=== PATIENT | female | born 1950 | race Caucasian/White ===

== ENCOUNTER 2016-11-02 09:08 | Inpatient (IN) | payer MEDICARE, OTHER ==
[2016-11-02] VITALS (20 sets, daily range): BP systolic 77–203; BP diastolic 35–104; PULSE 56–83; RESP 16–18; TEMP 97.6–97.8; O2SAT 96–99
[~2016-11-02] VITALS: Ht 157.5 cm; Wt 91.6 kg
[~2016-11-02 09:08] MED LIST: ATEN25TA PO; ZITHTAB PO
--- NOTE | 2016-11-02 09:29 | PD ---
HPI Chief Complaint: Hypertension Time Seen by Provider: 09:19 Travel History International Travel<30 days: No Contact w/Intl Traveler<30days: No Traveled to known affect area: No History of Present Illness HPI This is a 66-year-old female who has a history of hypertension who presents to the emergency department having woken up this morning feeling like her heart was racing, feeling like she couldn't get settled and she couldn't make her heart slowed down. Her symptoms were constant, lasted for an hour and have improved since she's been in the emergency department. She says she feels a little lightheaded now. She denies any chest pain or shortness of breath. At the time that the symptoms were going on she took her blood pressure and it was high in the 190s. She called her primary care physician who told her to come to the emergency department. She takes atenolol 50 mg daily for her blood pressure. She last took it last evening. PFSH Past Medical History Cardiovascular Problems: Yes (htn) COPD: Yes Glaucoma: Yes Hypertension: Yes Respiratory: Yes (asthma, copd) ?: Not Tubal Ligation: Yes Past Surgical History Abdominal Surgery: Yes (INGUINAL HERNIA CHILD) Cholecystectomy: Yes Tonsillectomy: Yes Other Surgery: Yes (CYST ON SPINE REMOVED, BLADDER SURGERY) Social History Alcohol Use: Yes Tobacco Use: No Substance Use: No Allergies-Medications (Allergen,Severity, Reaction): Coded Allergies: Macrolides (Unverified Allergy, Severe, HIVES, 11/02/16) Penicillin (Unverified Allergy, Severe, SWOLLEN GLANDS, 11/02/16) Quinolones (Unverified Allergy, Severe, HIVES, 11/02/16) Sulfa (Unverified Allergy, Severe, HIVES, 11/02/16) Reported Meds & Prescriptions Reported Meds & Active Scripts Active Reported Atenolol 25 Mg Tab 50 Mg PO DAILY Review of Systems Except as stated in HPI: all other systems reviewed are Neg Physical Exam Narrative GENERAL:Well appearing, no acute distress SKIN: Warm and dry. HEAD: Atraumatic. Normocephalic. EYES: Pupils equal and round. No injection or drainage. ENT: Moist mucous membranes NECK: Trachea midline. CARDIOVASCULAR: Regular rate and rhythm. No murmur appreciated. RESPIRATORY: Clear to auscultation. Breath sounds equal bilaterally. GASTROINTESTINAL: Abdomen soft, non-tender, nondistended. MUSCULOSKELETAL: No obvious deformities. NEUROLOGICAL: Awake and alert. No obvious cranial nerve deficits. Moving all extremities. PSYCHIATRIC: Appropriate mood and affect; insight and judgment normal. Data Data Last Documented VS Vital Signs Date Time Temp Pulse Resp B/P Pulse Ox O2 Delivery O2 Flow Rate FiO2 11/02/16 13:48 60 18 167/72 98 Room Air 11/02/16 09:13 97.7 Orders Complete Blood Count With Diff (11/02/16 09:26) Basic Metabolic Panel (Bmp) (11/02/16 09:26) Troponin I (11/02/16 09:26) Electrocardiogram (11/02/16 ) ^ Insert Iv (11/02/16 09:26) Enalaprilat Inj (Vasotec Inj) (11/02/16 09:30) Magnesium (Mg) (11/02/16 09:26) Ketorolac Inj (Toradol Inj) (11/02/16 10:30) Sodium Chlor 0.9% 1000 Ml Inj (Ns 1000 M (11/02/16 10:45) Troponin I (11/02/16 12:33) Aspirin Chew (Aspirin Chew) (11/02/16 13:45) Enoxaparin Inj (Lovenox Inj) (11/02/16 14:00) Electrocardiogram (11/02/16 ) Prothrombin Time / Inr (Pt) (11/02/16 13:48) Act Partial Throm Time (Ptt) (11/02/16 13:48) Admit Order (Ed Use Only) (11/02/16 13:53) Nitroglycerin-Dextrose Inj (Nitroglyceri (11/02/16 14:00) Labs Laboratory Tests Test 11/02/16 11/02/16 09:50 12:55 White Blood Count 7.8 TH/MM3 Red Blood Count 5.61 MIL/MM3 Hemoglobin 16.5 GM/DL Hematocrit 52.2 % Mean Corpuscular Volume 93.0 FL Mean Corpuscular Hemoglobin 29.4 PG Mean Corpuscular Hemoglobin 31.5 % Concent Red Cell Distribution Width 13.6 % Platelet Count 243 TH/MM3 Mean Platelet Volume 8.7 FL Neutrophils (%) (Auto) 60.0 % Lymphocytes (%) (Auto) 25.5 % Monocytes (%) (Auto) 7.5 % Eosinophils (%) (Auto) 5.2 % Basophils (%) (Auto) 1.8 % Neutrophils # (Auto) 4.7 TH/MM3 Lymphocytes # (Auto) 2.0 TH/MM3 Monocytes # (Auto) 0.6 TH/MM3 Eosinophils # (Auto) 0.4 TH/MM3 Basophils # (Auto) 0.1 TH/MM3 CBC Comment DIFF FINAL Differential Comment Sodium Level 145 MEQ/L Potassium Level 5.2 MEQ/L Chloride Level 111 MEQ/L Carbon Dioxide Level 27.9 MEQ/L Anion Gap 6 MEQ/L Blood Urea Nitrogen 15 MG/DL Creatinine 0.74 MG/DL Estimat Glomerular Filtration 78 ML/MIN Rate Random Glucose 96 MG/DL Calcium Level 8.4 MG/DL Magnesium Level 2.2 MG/DL Troponin I 0.03 NG/ML 0.16 NG/ML [facility] Medical Decision Making Medical Screen Exam Complete: Yes Emergency Medical Condition: Yes Interpretation(s) Afebrile, no tachycardia, hypertensive EKG: Normal sinus rhythm with no ST changes Hemoconcentration Potassium is hemolyzed at 5.2 Troponin is 0.03 increased to 0.16 on 3 hour repeat Differential Diagnosis Hypertensive urgency, hypertensive emergency, nSTEMI, arrhythmia, electrolyte abnormality Narrative Course This is a 66-year-old female who presents to the emergency department with generalized weakness, palpitations and some neck discomfort. She was placed on a monitor and an IV was established. She was found to be markedly hypertensive with a map of 129. She was given a dose of Vasotec. Repeat blood pressure was improved with a map in the 90s. She denies any chest pain. Labs are obtained which demonstrated normal troponin. On reassessment the patient started to report some neck discomfort and global "heaviness". She was observed for a repeat troponin which at 3 hours was elevated at 0.16 from her prior. I spoke to Dr. mccarty production hardener for cardiology who agreed with transferring the patient to the CICU for close blood pressure management and serial cardiac enzymes. He did recommend anticoagulation. Physician Communication Physician Communication Discussed with Dr. mccarty and Dr. Josue Diagnosis Primary Impression: Hypertensive emergency Admitting Information Admitting Physician Requests: Admit Cindy Brock MD Nov 02, 2016 09:28
[2016-11-02] MEDS ORDERED: ENALAPRILAT 1.25 MG/ML VIAL IV PUSH ONE (09:30)
[2016-11-02 10:03] LABS: AUTOMATED NEUTROPHIL # 4.7 TH/MM3 (1.8-7.7); BASOPHIL # 0.1 TH/MM3 (0-0.2); BASOPHIL % 1.8 % (0.0-2.0); EOSINOPHIL # 0.4 TH/MM3 (0-0.4); EOSINOPHIL % 5.2 % (0.0-4.0); HEMATOCRIT 52.2 % (35.0-46.0); LYMPH % 25.5 % (9.0-44.0); MEAN CORPUSCULAR HEMOGLOBIN 29.4 PG (27.0-34.0); MEAN CORPUSCULAR HGB CONC 31.5 % (32.0-36.0); MONO % 7.5 % (0.0-8.0); PLATELET COUNT 243 TH/MM3 (150-450); RED BLOOD COUNT 5.61 MIL/MM3 (4.00-5.30); RED CELL DISTRIBUTION WIDTH 13.6 % (11.6-17.2); WHITE BLOOD COUNT 7.8 TH/MM3 (4.0-11.0)
[2016-11-02 10:04] LABS: HEMO FLAGS DIFF FINAL
[2016-11-02 10:12] LABS: POTASSIUM 5.2 MEQ/L (3.5-5.1)
[2016-11-02 10:14] LABS: BICARBONATE 27.9 MEQ/L (21.0-32.0); MAGNESIUM 2.2 MG/DL (1.5-2.5)
[2016-11-02] MEDS ORDERED: KETOROLAC TROMETHAMINE 30 MG/ML (IVP) VIAL IV PUSH ONE (10:30)
[2016-11-02] MEDS ORDERED: SODIUM CHLOR 0.9% 1000 ML INJ 1,000 ML IV ONE (10:45)
--- NOTE | 2016-11-02 13:44 | EKG ---
Date Performed: 11/02/2016 Time Performed: 09:34:24 PTAGE: 66 years EKG: Sinus rhythm Normal ECG PREVIOUS TRACING : 03/02/2015 20.58 DOCTOR: Jordan Noyola Interpretating Date/Time 11/02/2016 13:42:49
[2016-11-02] MEDS ORDERED: ASPIRIN 81 MG CHEW TAB CHEW ONE (13:45)
[2016-11-02] MEDS ORDERED: ENOXAPARIN SODIUM 100 MG/ML SYRINGE SQ ONE (14:00)
[2016-11-02] MEDS ORDERED: LABETALOL HCL 100 MG/20 ML VIAL IV PRN (14:00)
[2016-11-02] MEDS ORDERED: NITROGLYCERIN-DEXTROSE INJ 250 ML IV ONE (14:00)
[2016-11-02] MEDS ORDERED: hydrALAZINE HCL 20 MG/ML VIAL IV PRN (14:00)
[2016-11-02 14:39] LABS: APTT (PATIENT) 26.7 SEC (24.3-30.1); INTERNATIONAL NORMALIZED RATIO 0.9 RATIO; PROTHROMBIN TIME - PATIENT 10.4 SEC (9.8-11.6)
[2016-11-02] MEDS: SODIUM CHLOR 0.9% 1000 ML INJ 1,000 ML IV SCH (14:42)
[2016-11-02 16:35] LABS: BLOOD, URINE NEG (NEG); GLUCOSE,URINE NEG (NEG); KETONE, URINE 15 mg/dL (NEG); NITRITE,URINE NEG (NEG); PH, URINE 6.5 (5.0-8.5)
[2016-11-02 16:37] LABS: URINE COLOR YELLOW (YELLW/STRAW)
[2016-11-02 16:38] LABS: SQUAMOUS EPITHELIAL CELL URINE 0-5 /hpf (0-5); WBC, URINE 0-2 /hpf (0-5)
--- NOTE | 2016-11-02 17:34 | HHI.HP ---
[facility] Service [place] [facility] Primary Care Physician No Primary Care Physician Admission Diagnosis hypertensive emergency Diagnoses: Chief Complaint: My blood pressure is high Travel History International Travel<30 Days: No Contact w/Intl Traveler <30 Da: No Traveled to Known Affected Are: No History of Present Illness 66 years old female with history of hypertension presented to [place] ED after she found out her blood pressure was high and she felt her heart racing, patient stated her symptoms was constant and lasted for an hour, improved now after she was placed on nitroglycerin, she stated she had a very mild headache now, no nausea or vomiting, no chest pain, no blurry vision. No abdominal pain diarrhea constipation she denied orthopnea PND. Patient was found to have blood pressure in the 180/104 she only takes atenolol 50 mg daily. In ED troponin jumped between first and second set, cardiology Dr. Go was consulted , he recommended full anticoagulation with Lovenox and to transfer patient to the main hospital for further workup and possible Heart catheter Review of Systems All 10 systems reviewed and was positive for what is mentioned in history of present illness otherwise negative Past Family Social History Past Medical History Hypertension Glaucoma Past Surgical History Abdominal Surgery (INGUINAL HERNIA CHILD) Cholecystectomy Tonsillectomy (CYST ON SPINE REMOVED, BLADDER SURGERY) Allergies: Coded Allergies: Macrolides (Unverified Allergy, Severe, HIVES, 11/02/16) Penicillin (Unverified Allergy, Severe, SWOLLEN GLANDS, 11/02/16) Quinolones (Unverified Allergy, Severe, HIVES, 11/02/16) Sulfa (Unverified Allergy, Severe, HIVES, 11/02/16) Family History Mother had heart surgery in the age of 80 Social History Occasional alcohol no tobacco or illicit drug abuse Physical Exam Vital Signs Vital Signs Date Time Temp Pulse Resp B/P Pulse Ox O2 Delivery O2 Flow Rate FiO2 11/02/16 16:28 186/88 178/72 11/02/16 16:24 68 18 203/95 98 Room Air 11/02/16 13:48 60 18 167/72 98 Room Air 11/02/16 11:05 58 18 141/65 98 Room Air 11/02/16 10:08 64 18 151/68 96 Room Air 11/02/16 09:28 74 11/02/16 09:13 97.7 77 16 151/101 96 180/104 Physical Exam GENERAL: This is a well-nourished, well-developed patient, in no apparent distress. SKIN: No rashes, warm and dry HEAD: Atraumatic. Normocephalic. EYES: Pupils equal round and reactive. Extraocular motions intact. No scleral icterus. ENT: Nose without bleeding, or drainage, Airway patent. NECK: Trachea midline. Supple CARDIOVASCULAR: Regular rate and rhythm without murmurs, gallops, or rubs. RESPIRATORY: Fair air entry bilaterally. No wheezes, rales, or rhonchi. GASTROINTESTINAL: Abdomen soft, non-tender, nondistended. Positive bowel sounds MUSCULOSKELETAL: Extremities without clubbing, cyanosis, or edema. Pedal pulses appreciated NEUROLOGICAL: Awake and alert. Moves all extremity. Normal speech.no focal neurological deficit Laboratory Laboratory Tests Test 11/02/16 11/02/16 11/02/16 11/02/16 09:50 12:55 14:15 16:12 White Blood Count 7.8 Red Blood Count 5.61 Hemoglobin 16.5 Hematocrit 52.2 Mean Corpuscular Volume 93.0 Mean Corpuscular Hemoglobin 29.4 Mean Corpuscular Hemoglobin 31.5 Concent Red Cell Distribution Width 13.6 Platelet Count 243 Mean Platelet Volume 8.7 Neutrophils (%) (Auto) 60.0 Lymphocytes (%) (Auto) 25.5 Monocytes (%) (Auto) 7.5 Eosinophils (%) (Auto) 5.2 Basophils (%) (Auto) 1.8 Neutrophils # (Auto) 4.7 Lymphocytes # (Auto) 2.0 Monocytes # (Auto) 0.6 Eosinophils # (Auto) 0.4 Basophils # (Auto) 0.1 CBC Comment DIFF FINAL Differential Comment Sodium Level 145 Potassium Level 5.2 Chloride Level 111 Carbon Dioxide Level 27.9 Anion Gap 6 Blood Urea Nitrogen 15 Creatinine 0.74 Estimat Glomerular Filtration 78 Rate Random Glucose 96 Calcium Level 8.4 Magnesium Level 2.2 Troponin I 0.03 0.16 Prothrombin Time 10.4 Prothromb Time International 0.9 Ratio Activated Partial 26.7 Thromboplast Time Urine Color YELLOW Urine Turbidity CLEAR Urine pH 6.5 Urine Specific [place] 1.020 Urine Protein NEG Urine Glucose (UA) NEG Urine Ketones 15 Urine Occult Blood NEG Urine Nitrite NEG Urine Bilirubin NEG Urine Leukocyte Esterase NEG Urine WBC 0-2 Urine Squamous Epithelial 0-5 Cells Result Diagram: 11/02/16 0950 11/02/16 0950 Assessment and Plan Assessment and Plan 66 years old female with history of hypertension admitted with Hypertensive urgency Increased troponin could be related to hypertensive urgency versus acute coronary syndrome History of glaucoma DVT prophylaxis Plan: Admit to inpatient under telemetry Continue cycling cardiac enzyme Patient was given aspirin Started nitroglycerin drip Consulted cardiology recommended transfer to [facility] for further workup Last blood pressure checked manually by the nurse was 178/87 Heparin for DVT prophylax Discussed Condition With Patient in ED physician Physician Certification 2 Midnight Certification Type: Admission for Inpatient Services Order for Inpatient Services The services are ordered in accordance with Medicare regulations or non- Medicare payer requirements, as applicable. In the case of services not specified as inpatient-only, they are appropriately provided as inpatient services in accordance with the 2-midnight benchmark. Estimated LOS (days): 2 days is the estimated time the patient will need to remain in the hospital, assuming treatment plan goals are met and no additional complications. Post-Hospital Plan: Not yet determined Titus Josue MD Nov 02, 2016 17:34
[2016-11-02] MEDS ORDERED: hydrALAZINE HCL 20 MG/ML VIAL IV PUSH PRN (18:15)
[2016-11-02] MEDS: LISINOPRIL 20 MG TAB PO SCH (18:21)
[2016-11-02] MEDS: cloNIDine HCL 0.1 MG TAB PO PRN (18:21)
[2016-11-02] MEDS ORDERED: ACETAMINOPHEN 325 MG TAB PO PRN (19:00)
[2016-11-02 20:51] LABS: HDL CHOLESTEROL 53.8 MG/DL (40.0-60.0); URIC ACID 5.6 MG/DL (2.6-6.0)
[2016-11-02] MEDS ORDERED: SODIUM CHLORID 0.9% 500 ML INJ 500 ML IV ONE (23:15)
[2016-11-03] VITALS (23 sets, daily range): BP systolic 98–171; BP diastolic 49–77; PULSE 56–79; RESP 16–20; TEMP 97.7–98.4; O2SAT 97–99
[2016-11-03 00:13] LABS: MICRO ALBUMIN RANDOM URINE RAW 24.3 MG/L (0.0-30.0)
[2016-11-03] MEDS ORDERED: ENOXAPARIN SODIUM 100 MG/ML SYRINGE SQ SCH (02:00)
[2016-11-03 02:35] LABS: C. DIFF EPI 027 PRESUMPTIVE NEGATIVE (NEGATIVE); C. DIFF TOXIN PCR NEGATIVE (NEGATIVE)
[2016-11-03] MEDS: SODIUM CHLOR 0.9% 1000 ML INJ 1,000 ML IV SCH ×3 (03:14→20:52)
[2016-11-03] MEDS ORDERED: LIDOCAINE HCL 2% 100 MG/5 ML SYRINGE ONE (03:39)
[2016-11-03] MEDS ORDERED: ATROPINE SULFATE 1 MG/10 ML SYRINGE ONE (03:39)
[2016-11-03 07:16] LABS: AUTOMATED NEUTROPHIL # 9.4 TH/MM3 (1.8-7.7); BASOPHIL % 0.3 % (0.0-2.0); EOSINOPHIL % 0.2 % (0.0-4.0); HEMO FLAGS DIFF FINAL; LYMPH % 11.1 % (9.0-44.0); LYMPHOCYTE # 1.2 TH/MM3 (1.0-4.8); MEAN CELL VOLUME 92.1 FL (80.0-100.0); MEAN CORPUSCULAR HEMOGLOBIN 29.7 PG (27.0-34.0); MEAN CORPUSCULAR HGB CONC 32.2 % (32.0-36.0); MONO % 3.2 % (0.0-8.0); NEUT % 85.2 % (16.0-70.0); PLATELET COUNT 210 TH/MM3 (150-450); RED BLOOD COUNT 4.77 MIL/MM3 (4.00-5.30); RED CELL DISTRIBUTION WIDTH 13.8 % (11.6-17.2)
[2016-11-03 07:26] LABS: BICARBONATE 25.2 MEQ/L (21.0-32.0); POTASSIUM 3.8 MEQ/L (3.5-5.1)
--- NOTE | 2016-11-03 08:39 | MB ---
cc: GEOVANI MCKEON DATE OF CONSULTATION: 11/02/2016. REASON FOR CONSULTATION: no ST elevation myocardial infarction. HISTORY OF PRESENT ILLNESS: This is a 66-year-old female with history of significant hypertension who presented to the emergency department at [place] after she felt substernal chest pain and tachycardia this morning. The patient states that she awoke. She had sudden onset of substernal tightness she describes as a heaviness in the center of her chest. She also had a mild associated headache. She denies any recent anginal type exertional symptoms but she does have limited functional capacity. She came into the emergency department and was given nitroglycerin which relieved the pain. Initial blood pressure was elevated at 180/104 mmHg. She does take atenolol at home. Her initial troponin was negative but trended positive at 0.16. She has had some intermittent symptoms. She was started on a heparin drip and transferred to the cardiac intensive care unit. We were consulted for further recommendations. PAST MEDICAL HISTORY: 1. Hypertension. 2. Glaucoma. ALLERGIES: 1. . 2. PENICILLIN. 3. QUINOLONES. 4. SULFA. FAMILY HISTORY: Denies any family history of early coronary artery disease or sudden cardiac . SOCIAL HISTORY: Denies alcohol, tobacco or drug use. REVIEW OF SYSTEMS: Her twelve-point review of systems was performed and is negative unless otherwise noted in the history of present illness. PHYSICAL EXAMINATION: VITAL SIGNS: Temperature is 97, pulse is 60, blood pressure is 177/84 mmHg. GENERAL: Alert and oriented times three. HEAD, EYES, EARS, NOSE, THROAT: Pupils are reactive to light and accommodation. Extraocular muscles intact. NECK: No jugular venous distension. No thyromegaly or lymphadenopathy. No carotid bruits. LUNGS: Clear to auscultation bilaterally. CARDIAC: Regular rate and rhythm. There is a 1/6 systolic murmur left sternal border. ABDOMEN: Nontender, nondistended. Good bowel sounds. No hepatosplenomegaly. EXTREMITIES: Show no clubbing, cyanosis or edema. Good peripheral pulses. NEUROLOGICAL EXAMINATION: Cranial nerves are intact. Motor and sensory are intact. LABS: Sodium is 145, potassium 5.2, BUN 15, creatinine 0.74. Troponin is 0.16. EKGS: Electrocardiogram shows sinus rhythm, nonspecific T wave abnormality. ASSESSMENT: 1. [id number] myocardial infarction. 2. Hypertension, uncontrolled. PLAN: 1. The patient has recurrent symptoms, now ruled in by troponin. We discussed potential options and consideration of stress test versus heart catheterization. We have elected to proceed with cardiac catheterization. Risks, benefits, and alternatives were discussed with the patient and the patient understood and consented to proceed. 2. We will continue on heparin for now. 3. We are going to add hydralazine to her regimen for better blood pressure control. 4. Will also add an CHAPARRITA inhibitor once a day. She previously had taken atenolol. 5. Will hold Lovenox in the morning. MD REGINALD Norris/MARIXA /6:08 PM /8:38 AM MTDD
[2016-11-03] MEDS: ATENOLOL 25 MG TAB PO SCH (08:56)
[2016-11-03] MEDS: LISINOPRIL 20 MG TAB PO SCH (08:56)
[2016-11-03] MEDS: ASPIRIN EC 81 MG TABEC PO SCH (08:56)
--- NOTE | 2016-11-03 10:47 | PD.CARD.PN ---
Subjective Subjective Remarks admits to mild BEASLEY. denies any further chest pain. No SOB or palpitations. Objective Medications Current Medications Medications (Trade) Dose Ordered Sig/Pritesh Route Start Time Stop Time Status Last Admin (NS 1000 ml Inj) 1,000 ml @ 75 mls/hr [id number] IV 11/02/16 13:54 11/03/16 03:14 (Trandate Inj) 10 mg Q6H PRN IV 11/02/16 14:00 (Ecotrin Ec) 81 mg DAILY PO 11/03/16 09:00 11/03/16 08:56 (Tenormin) 25 mg DAILY PO 11/03/16 09:00 11/03/16 08:56 (Prinivil) 40 mg DAILY PO 11/02/16 18:15 11/03/16 08:56 (Apresoline Inj) 20 mg Q4H PRN IV PUSH 11/02/16 18:15 11/02/16 18:21 (Catapres) 0.2 mg Q6H PRN PO 11/02/16 18:15 11/02/16 18:21 (Tylenol) 650 mg Q4H PRN PO 11/02/16 19:00 11/03/16 09:04 Vital Signs / I&O Vital Signs Date Time Temp Pulse Resp B/P Pulse Ox O2 Delivery O2 Flow Rate FiO2 11/03/16 10:04 16 11/03/16 08:00 98.2 79 16 159/76 98 11/03/16 08:00 66 11/03/16 06:00 73 11/03/16 05:00 65 11/03/16 04:00 63 11/03/16 04:00 98.0 63 16 121/65 97 11/03/16 03:00 65 11/03/16 02:00 58 11/03/16 01:00 58 11/03/16 01:00 58 11/03/16 00:00 97.7 56 20 98/49 97 11/03/16 00:00 65 11/03/16 00:00 65 11/02/16 23:00 56 11/02/16 23:00 56 11/02/16 22:54 101/52 11/02/16 22:50 93/44 11/02/16 22:45 84/44 11/02/16 22:42 77/35 11/02/16 22:31 79/39 11/02/16 22:00 58 11/02/16 22:00 58 11/02/16 21:00 60 11/02/16 21:00 60 11/02/16 20:00 97.6 65 18 96/47 97 Manual Cuff/Auscultation 11/02/16 20:00 70 11/02/16 20:00 83 11/02/16 19:00 83 11/02/16 19:00 83 11/02/16 18:30 165/73 11/02/16 17:35 61 11/02/16 17:30 61 11/02/16 17:20 97.8 61 16 177/84 99 11/02/16 16:28 186/88 178/72 11/02/16 16:24 68 18 203/95 98 Room Air 11/02/16 13:48 60 18 167/72 98 Room Air 11/02/16 11:05 58 18 141/65 98 Room Air I/O 11/02/16 11/02/16 11/02/16 11/03/16 11/03/16 11/03/16 07:00 15:00 23:00 07:00 15:00 23:00 Intake Total 1000 ml 1291 ml Output Total 200 ml Balance 1000 ml 1091 ml Intake Oral 120 ml IV Total 1000 ml 1171 ml Output Urine Total 200 ml # Voids 2 # Bowel Movements 3 Physical Exam HEAD: Atraumatic. Normocephalic. EYES: Pupils equal and round. No scleral icterus. No injection or drainage. ENT: No nasal bleeding or discharge. Mucous membranes pink and moist. NECK: Trachea midline. No JVD. CARDIOVASCULAR: Regular rate and rhythm. No murmur RESPIRATORY: No accessory muscle use. Clear to auscultation. Breath sounds equal bilaterally. GASTROINTESTINAL: Abdomen soft, non-tender, nondistended. MUSCULOSKELETAL: Extremities without clubbing, cyanosis, or edema. No obvious deformities. NEUROLOGICAL: Awake and alert. No obvious cranial nerve deficits. Normal speech. PSYCHIATRIC: Appropriate mood and affect; insight and judgment normal. Laboratory Laboratory Tests Test 11/02/16 11/02/16 11/02/16 11/02/16 12:55 14:15 16:12 16:16 Troponin I 0.16 NG/ML Prothrombin Time 10.4 SEC Prothromb Time International 0.9 RATIO Ratio Activated Partial 26.7 SEC Thromboplast Time Urine Color YELLOW Urine Turbidity CLEAR Urine pH 6.5 Urine Specific [place] 1.020 Urine Protein NEG mg/dL Urine Glucose (UA) NEG mg/dL Urine Ketones 15 mg/dL Urine Occult Blood NEG Urine Nitrite NEG Urine Bilirubin NEG Urine Leukocyte Esterase NEG Urine WBC 0-2 /hpf Urine Squamous Epithelial 0-5 /hpf Cells Urine Random Creatinine 98 MG/DL Urine Microalbumin/Creatinine 25 MG/G CRE Ratio Test 11/02/16 11/02/16 11/03/16 11/03/16 20:25 20:26 00:00 06:10 Creatinine 1.06 MG/DL 0.78 MG/DL Estimat Glomerular Filtration 52 ML/MIN 73 ML/MIN Rate Uric Acid 5.6 MG/DL Troponin I 0.10 NG/ML Triglycerides Level 114 MG/DL Cholesterol Level 200 MG/DL LDL Cholesterol 123 MG/DL HDL Cholesterol 53.8 MG/DL Cholesterol/HDL Ratio 3.71 RATIO Blood Type A POSITIVE Antibody Screen NEGATIVE Blood Bank Comment Stool C. difficile Toxin (PCR) NEGATIVE Stl C. difficile Toxin PRESUMPTIVE Epiderm 027 NEGATIVE White Blood Count 11.0 TH/MM3 Red Blood Count 4.77 MIL/MM3 Hemoglobin 14.2 GM/DL Hematocrit 44.0 % Mean Corpuscular Volume 92.1 FL Mean Corpuscular Hemoglobin 29.7 PG Mean Corpuscular Hemoglobin 32.2 % Concent Red Cell Distribution Width 13.8 % Platelet Count 210 TH/MM3 Mean Platelet Volume 8.7 FL Neutrophils (%) (Auto) 85.2 % Lymphocytes (%) (Auto) 11.1 % Monocytes (%) (Auto) 3.2 % Eosinophils (%) (Auto) 0.2 % Basophils (%) (Auto) 0.3 % Neutrophils # (Auto) 9.4 TH/MM3 Lymphocytes # (Auto) 1.2 TH/MM3 Monocytes # (Auto) 0.4 TH/MM3 Eosinophils # (Auto) 0.0 TH/MM3 Basophils # (Auto) 0.0 TH/MM3 CBC Comment DIFF FINAL Differential Comment Sodium Level 143 MEQ/L Potassium Level 3.8 MEQ/L Chloride Level 111 MEQ/L Carbon Dioxide Level 25.2 MEQ/L Anion Gap 7 MEQ/L Blood Urea Nitrogen 19 MG/DL Random Glucose 108 MG/DL Calcium Level 8.1 MG/DL Assessment and Plan Assessment and Plan NSTEMI - chest pain resolved since nitro given in ED yesterday. Scheduled for [facility] this morning. Candie Ramirez Nov 03, 2016 10:47
--- NOTE | 2016-11-03 11:18 | HHI.PR ---
Subjective Remarks Follow-up non-ST elevation [place] 11/03/16-patient seen and examined, currently nothing by mouth pending [facility] me complains of couple bout of diarrhea. Denies any chest pain Objective Vitals Vital Signs Date Time Temp Pulse Resp B/P Pulse Ox O2 Delivery O2 Flow Rate FiO2 11/03/16 10:04 16 11/03/16 08:00 98.2 79 16 159/76 98 11/03/16 08:00 66 11/03/16 06:00 73 11/03/16 05:00 65 11/03/16 04:00 63 11/03/16 04:00 98.0 63 16 121/65 97 11/03/16 03:00 65 11/03/16 02:00 58 11/03/16 01:00 58 11/03/16 01:00 58 11/03/16 00:00 97.7 56 20 98/49 97 11/03/16 00:00 65 11/03/16 00:00 65 11/02/16 23:00 56 11/02/16 23:00 56 11/02/16 22:54 101/52 11/02/16 22:50 93/44 11/02/16 22:45 84/44 11/02/16 22:42 77/35 11/02/16 22:31 79/39 11/02/16 22:00 58 11/02/16 22:00 58 11/02/16 21:00 60 11/02/16 21:00 60 11/02/16 20:00 97.6 65 18 96/47 97 Manual Cuff/Auscultation 11/02/16 20:00 70 11/02/16 20:00 83 11/02/16 19:00 83 11/02/16 19:00 83 11/02/16 18:30 165/73 11/02/16 17:35 61 11/02/16 17:30 61 11/02/16 17:20 97.8 61 16 177/84 99 11/02/16 16:28 186/88 178/72 11/02/16 16:24 68 18 203/95 98 Room Air 11/02/16 13:48 60 18 167/72 98 Room Air I/O 11/02/16 11/02/16 11/02/16 11/03/16 11/03/16 11/03/16 07:00 15:00 23:00 07:00 15:00 23:00 Intake Total 1000 ml 1291 ml Output Total 200 ml Balance 1000 ml 1091 ml Intake Oral 120 ml IV Total 1000 ml 1171 ml Output Urine Total 200 ml # Voids 2 # Bowel Movements 3 Result Diagram: 11/03/16 0610 11/03/16 0610 Objective Remarks GENERAL: NAD SKIN: Warm and dry. HEAD: Normocephalic. EYES: No scleral icterus. No injection or drainage. NECK: Supple, trachea midline. No JVD or lymphadenopathy. CARDIOVASCULAR: Regular rate and rhythm without murmurs, gallops, or rubs. RESPIRATORY: Breath sounds equal bilaterally. No accessory muscle use. GASTROINTESTINAL: Abdomen soft, non-tender, nondistended. MUSCULOSKELETAL: No cyanosis, or edema. BACK: Nontender without obvious deformity. No CVA tenderness. A/P Problem List: (1) Non-ST elevation [place] (NSTEMI) ICD Code: I21.4 Status: Acute (2) Hypertensive emergency ICD Code: I16.1 Status: Acute (3) Diarrhea ICD Code: R19.7 Status: Acute Assessment and Plan 66-year-old female with 1-Non-ST elevation [place]: Patient input from cardiology pending left heart catheterization scheduled for today. Continue with Nitrol /lisinopril/aspirin/ atenolol and add Lipitor. Patient was supposed to be on Heparin drip 2-Hypertensive urgency: Resolved and continue with atenolol and CHAPARRITA inhibitor 3-Diarrhea: Maybe secondary to medication side effect, C. difficile PCR negative 4-DVT prophylaxis: Edwin Freeman MD Nov 03, 2016 11:18
[2016-11-03] MEDS ORDERED: LOPERAMIDE HCL 2 MG CAP PO PRN ×2 (15:00→17:00)
[2016-11-03] MEDS ORDERED: HEPARIN-NS/PF INJ 500 ML ONE (15:20)
[2016-11-03] MEDS ORDERED: MIDAZOLAM HCL 2 MG/2 ML VIAL ONE (15:21)
[2016-11-03] MEDS ORDERED: HEPARIN SODIUM - IV 10,000 UNITS/10 ML VIAL ONE (15:21)
[2016-11-03] MEDS ORDERED: IOHEXOL 350 MG/ML 100 ML BTL (for Cath Lab) OTHER ONE (15:45)
--- NOTE | 2016-11-03 15:53 | EKG ---
Date Performed: 11/02/2016 Time Performed: 13:38:38 PTAGE: 66 years EKG: Sinus bradycardia PREVIOUS TRACING : 11/02/2016 09.34 Compared to previous tracing, the patient is now danielle ycardic. DOCTOR: Yady Del Valle Interpretating Date/Time 11/03/2016 15:51:26
[2016-11-03] MEDS ORDERED: BACITRACIN OINT 0.9 GM PKT TOP ONE (16:00)
[2016-11-03] MEDS ORDERED: MISC INFORMATION XX ONE (16:00)
--- NOTE | 2016-11-03 17:16 | EC ---
Study Study Date:11/03/2016 STUDY CONCLUSIONS SUMMARY LEFT VENTRICLE: The cavity size was normal. Wall thickness was normal. Systolic function was normal. The estimated ejection fraction was in the range of 55% to 60%. Wall motion was normal; there were no regional wall motion abnormalities. If LV function is below 40, please consider prescribing an ACEI or ARB or document rationale for non-use. PROCEDURE DATA STUDY STATUS: Elective. Procedure: Transthoracic echocardiography. Image quality was good. Scanning was performed from the parasternal, apical, and subcostal acoustic windows. Study completion: The patient tolerated the procedure well. Transthoracic echocardiography. M-mode, complete 2D, complete spectral Doppler, and color Doppler. Patient status: Inpatient. CARDIAC ANATOMY LEFT VENTRICLE: The cavity size was normal. Wall thickness was normal. Systolic function was normal. The estimated ejection fraction was in the range of 55% to 60%. Wall motion was normal; there were no regional wall motion abnormalities. AORTIC VALVE: Trileaflet; normal thickness leaflets. Doppler: Transvalvular velocity was within the normal range. There was no stenosis. No regurgitation. AORTA: Aortic root: The aortic root was normal in size. MITRAL VALVE: Structurally normal valve. Doppler: Transvalvular velocity was within the normal range. There was no evidence for stenosis. No regurgitation. Peak gradient: 3mm Hg (D). LEFT ATRIUM: The atrium was normal in size. RIGHT VENTRICLE: The cavity size was normal. Wall thickness was normal. PULMONIC VALVE: Doppler: Transvalvular velocity was within the normal range. There was no evidence for stenosis. No regurgitation. TRICUSPID VALVE: Structurally normal valve. Doppler: Transvalvular velocity was within the normal range. No regurgitation. PULMONARY ARTERY: The main pulmonary artery was normal-sized. Systolic pressure was within the normal range. RIGHT ATRIUM: The atrium was normal in size. PERICARDIUM: There was no pericardial effusion. SYSTEMIC VEINS: Inferior vena cava: The vessel was normal in size. BASIC MEASUREMENTS ADULT NORMAL Left ventricle LV internal dimension, ED, chordal level, 44.4 mm 43-52 PLAX LV internal dimension, ES, chordal level, 33.9 mm 23-38 PLAX Fractional shortening, chordal level, PLAX *24 % >29 LV posterior wall thickness, ED 7.41 mm IVS/LVPW ratio, ED 1.06 <1.3 Ventricular septum Septal thickness, ED 7.84 mm Aortic valve Leaflet separation 21 mm 15-26 Left atrium Anterior-posterior dimension 25 mm Right ventricle RV internal dimension, ED, PLAX 21.2 mm 19-38 BASIC MEASUREMENTS ADULT NORMAL Aortic valve Leaflet separation 21 mm 15-26 Aorta Root diameter, ED 30 mm 20-37 DOPPLER MEASUREMENTS ADULT NORMAL Mitral valve Peak E-wave velocity 86.9 cm/s Peak A-wave velocity 80.5 cm/s Peak gradient, D 3 mm Hg Peak E/A ratio 1.1 Tricuspid valve Regurgitant peak velocity 246 cm/s Peak RV-RA gradient, S 24 mm Hg Maximal regurgitant velocity 246 cm/s LEGEND: Mean values are shown as u=mean value. Asterisk (*) roberts values outside specified normal range. Prepared and signed by Jordan Noyola [id number]
--- NOTE | 2016-11-03 17:55 | MA ---
cc: GEOVANI MCKEON DATE: 11/03/2016. PROCEDURE PERFORMED: 1. Fluoroscopy with interpretation. 2. Left heart catheterization. 3. Left ventriculography. 4. Coronary angiography. METHOD: The risks, benefits, and alternatives were discussed with the patient. The patient understood and consented to the procedure. The patient was brought into the cardiac catheterization lab and placed on the catheterization table. Right wrist was prepped and draped in the usual sterile fashion. Right wrist was anesthetized with 2% lidocaine. Right radial artery was cannulated. A 6-Macedonian 7-cm sheath was placed without difficulty. LEFT HEART CATHETERIZATION Initial intraoperative hemodynamics measured at 149/40 mmHg. LEFT VENTRICULOGRAPHY: Left ventriculography was performed in the right anterior oblique view using a 6-Macedonian JR-5 catheter and a 12 cc contrast injection with good opacification. The left ventricular ejection fraction was visually estimated at 65% without regional wall motion abnormalities. CORONARY ANGIOGRAPHY: The left coronary circulation was selectively engaged with a 6-Macedonian catheter. Right coronary circulation was selectively engaged with a 6-Macedonian JR-5 catheter. CORONARY ANATOMY: 1. Left main coronary is angiographically normal. 2. Left anterior descending coronary is angiographically normal and extends down to the apex. 3. Left circumflex gives rise to a ramus intermedius branch and obtuse marginal branch and is left dominant all of which are angiographically normal. 4. The right coronary artery is small in caliber sized vessel and nondominant and is angiographically normal. CONCLUSIONS: 1. Angiographically normal coronary arteries. 2. Normal left ventricular systolic function. PLAN: The patient will be monitored closely for any post-procedural complications. The mildly elevated troponin is likely secondary to demand-mediated state with hypertension. Blood pressure control will be critical. She can follow up with her primary care physician on an outpatient basis. MD REGINALD Norris/MARIXA /4:00 PM /5:49 PM
[2016-11-03] MEDS: cloNIDine HCL 0.1 MG TAB PO PRN (20:51)
[2016-11-03] MEDS ORDERED: ATORVASTATIN 20 MG TAB PO SCH (21:00)
[2016-11-04] VITALS (10 sets, daily range): BP systolic 125–159; BP diastolic 68–77; PULSE 57–67; RESP 16–18; TEMP 98.1–98.6; O2SAT 97–99
[2016-11-04 06:57] LABS: ALT (GPT) 11 U/L (10-53); ANION GAP 8 MEQ/L (5-15); AST (GOT) 9 U/L (15-37); BICARBONATE 23.1 MEQ/L (21.0-32.0); BLOOD UREA NITROGEN 10 MG/DL (7-18); CHLORIDE 112 MEQ/L (98-107); GLOMERULAR FILTRATION RATE 103 ML/MIN (>89); POTASSIUM 3.5 MEQ/L (3.5-5.1); SODIUM (NA) 143 MEQ/L (136-145)
[2016-11-04 06:59] LABS: ALKALINE PHOSPHATASE 53 U/L (45-117)
[2016-11-04] MEDS: SODIUM CHLOR 0.9% 1000 ML INJ 1,000 ML IV SCH (07:46)
--- NOTE | 2016-11-04 07:46 | PD.CARD.PN ---
Subjective Subjective Remarks The patient denies chest pain, shortness of breath, palpitations or bleeding. Telemetry reveals sinus rhythm. Chart reviewed. Objective Medications Reviewed Vital Signs / I&O Vital Signs Date Time Temp Pulse Resp B/P Pulse Ox O2 Delivery O2 Flow Rate FiO2 11/04/16 07:00 59 11/04/16 06:00 66 11/04/16 05:00 61 11/04/16 04:00 57 11/04/16 04:00 98.6 57 18 125/68 97 11/04/16 03:00 64 11/04/16 02:00 61 11/04/16 01:00 59 11/04/16 00:00 98.3 67 16 131/71 97 11/04/16 00:00 61 11/03/16 23:00 62 11/03/16 22:00 64 11/03/16 21:00 64 11/03/16 20:00 63 11/03/16 20:00 98.4 65 16 162/63 99 11/03/16 18:00 60 11/03/16 17:00 66 11/03/16 16:00 98.2 66 16 171/77 99 11/03/16 16:00 63 11/03/16 15:00 58 11/03/16 14:00 62 11/03/16 13:00 56 11/03/16 12:00 59 11/03/16 12:00 98.1 60 18 147/72 98 11/03/16 11:00 60 11/03/16 10:04 16 11/03/16 10:00 60 11/03/16 09:00 76 11/03/16 08:00 98.2 79 16 159/76 98 11/03/16 08:00 66 I/O 11/03/16 11/03/16 11/03/16 11/04/16 11/04/16 11/04/16 07:00 15:00 23:00 07:00 15:00 23:00 Intake Total 1291 ml 1610 ml 1117 ml Output Total 200 ml 850 ml 550 ml Balance 1091 ml 760 ml 567 ml Intake Oral 120 ml 360 ml 480 ml IV Total 1171 ml 1250 ml 637 ml Output Urine Total 200 ml 850 ml 550 ml # Bowel Movements 3 3 0 Physical Exam GENERAL: Well-nourished, well-developed patient in no apparent distress. SKIN: Warm and dry. NECK: JVD normal - less than or equal to 5 cm H20. CARDIOVASCULAR: Regular rate and rhythm without gallops, or rubs. 1/6 early peaking systolic ejection murmur at the base. RESPIRATORY: Normal breath sounds - equal bilaterally. No accessory muscle use. No wheezes, rales or rubs. PERIPHERY: No cyanosis, or edema. Radial Cath Site dry. Laboratory Laboratory Tests Test 11/04/16 04:55 Sodium Level 143 MEQ/L Potassium Level 3.5 MEQ/L Chloride Level 112 MEQ/L Carbon Dioxide Level 23.1 MEQ/L Anion Gap 8 MEQ/L Blood Urea Nitrogen 10 MG/DL Creatinine 0.58 MG/DL Estimat Glomerular Filtration 103 ML/MIN Rate Random Glucose 85 MG/DL Calcium Level 7.9 MG/DL Total Bilirubin 1.0 MG/DL Aspartate Amino Transf 9 U/L (AST/SGOT) Alanine Aminotransferase 11 U/L (ALT/SGPT) Alkaline Phosphatase 53 U/L Total Protein 5.9 GM/DL Albumin 2.4 GM/DL Assessment and Plan Assessment and Plan Problems: Non-ST elevation NM, likely demand driven from hypertension. Hyperlipidemia Recommendations: Continue present medical regimen with follow-up with PCP. The patient has not had a chest x-ray and I will therefore order one and leave it to the primary service to follow-up on this before discharge. We will be available if needed. Chilo Allen MD Nov 04, 2016 07:46
--- NOTE | 2016-11-04 08:19 | HHI.PR ---
Subjective Remarks Follow-up non-ST elevation [place] 11/03/16-patient seen and examined, currently nothing by mouth pending [facility] complains of couple bout of diarrhea. Denies any chest pain 11/04/16-patient seen and examined. Denies any chest pain or shortness of breath. Only complains of mild abdominal cramping secondary to diarrhea episode which have resolved. She had normal nuclear stress test yesterday. Objective Vitals Vital Signs Date Time Temp Pulse Resp B/P Pulse Ox O2 Delivery O2 Flow Rate FiO2 11/04/16 07:00 59 11/04/16 06:00 66 11/04/16 05:00 61 11/04/16 04:00 57 11/04/16 04:00 98.6 57 18 125/68 97 11/04/16 03:00 64 11/04/16 02:00 61 11/04/16 01:00 59 11/04/16 00:00 98.3 67 16 131/71 97 11/04/16 00:00 61 11/03/16 23:00 62 11/03/16 22:00 64 11/03/16 21:00 64 11/03/16 20:00 63 11/03/16 20:00 98.4 65 16 162/63 99 11/03/16 18:00 60 11/03/16 17:00 66 11/03/16 16:00 98.2 66 16 171/77 99 11/03/16 16:00 63 11/03/16 15:00 58 11/03/16 14:00 62 11/03/16 13:00 56 11/03/16 12:00 59 11/03/16 12:00 98.1 60 18 147/72 98 11/03/16 11:00 60 11/03/16 10:04 16 11/03/16 10:00 60 11/03/16 09:00 76 I/O 11/03/16 11/03/16 11/03/16 11/04/16 11/04/16 11/04/16 07:00 15:00 23:00 07:00 15:00 23:00 Intake Total 1291 ml 1610 ml 1117 ml Output Total 200 ml 850 ml 550 ml Balance 1091 ml 760 ml 567 ml Intake Oral 120 ml 360 ml 480 ml IV Total 1171 ml 1250 ml 637 ml Output Urine Total 200 ml 850 ml 550 ml # Bowel Movements 3 3 0 Result Diagram: 11/03/16 0610 11/04/16 0455 Objective Remarks GENERAL: NAD SKIN: Warm and dry. HEAD: Normocephalic. EYES: No scleral icterus. No injection or drainage. NECK: Supple, trachea midline. No JVD or lymphadenopathy. CARDIOVASCULAR: Regular rate and rhythm without murmurs, gallops, or rubs. RESPIRATORY: Breath sounds equal bilaterally. No accessory muscle use. GASTROINTESTINAL: Abdomen soft, non-tender, nondistended. MUSCULOSKELETAL: No cyanosis, or edema. BACK: Nontender without obvious deformity. No CVA tenderness. Procedures none A/P Problem List: (1) Non-ST elevation [place] (NSTEMI) ICD Code: I21.4 Status: Acute (2) Hypertensive emergency ICD Code: I16.1 Status: Acute (3) Diarrhea ICD Code: R19.7 Status: Acute Assessment and Plan 66-year-old female with 1-Non-ST elevation FL: Appreciate input from cardiology and patient is status post [facility] 11/03/16 with Angiographically normal coronary arteries and Normal left ventricular systolic function. Continue with Nitrol /lisinopril/aspirin/ atenolol and add Lipitor. 2-Hypertensive urgency: Resolved and continue with atenolol and CHAPARRITA inhibitor 3-Diarrhea: C. difficile PCR negative, improving continue with conservative management. 4-DVT prophylaxis: Edwin Freeman MD Nov 04, 2016 08:19
[2016-11-04] MEDS ORDERED: ATEN25TA PO (08:25)
[2016-11-04] MEDS ORDERED: ASPI81TA11 PO (08:25)
[2016-11-04] MEDS ORDERED: LIPI20TA PO (08:25)
[2016-11-04] MEDS ORDERED: LISI-515 PO (08:25)
--- NOTE | 2016-11-04 08:27 | HHI.DS ---
Discharge Summary Admission Date Nov 02, 2016 at 13:55 Discharge Date: Nov 04, 2016 Admitting Diagnosis hypertensive emergency (1) Non-ST elevation [place] (NSTEMI) ICD Code: I21.4 (2) Hypertensive emergency ICD Code: I16.1 (3) Diarrhea ICD Code: R19.7 Procedures none Brief History - From Admission 66 years old female with history of hypertension presented to [facility] ED after she found out her blood pressure was high and she felt her heart racing, patient stated her symptoms was constant and lasted for an hour, improved now after she was placed on nitroglycerin, she stated she had a very mild headache now, no nausea or vomiting, no chest pain, no blurry vision. No abdominal pain diarrhea constipation she denied orthopnea PND. Patient was found to have blood pressure in the 180/104 she only takes atenolol 50 mg daily. In ED troponin jumped between first and second set, cardiology Dr. oG was consulted , he recommended full anticoagulation with Lovenox and to transfer patient to the main hospital for further workup and possible Heart catheter CBC/BMP: 11/03/16 0610 11/04/16 0455 Significant Findings Laboratory Tests Test 11/02/16 11/02/16 11/02/16 11/02/16 09:50 12:55 16:12 20:25 Red Blood Count 5.61 MIL/MM3 (4.00-5.30) Hemoglobin 16.5 GM/DL (11.6-15.3) Hematocrit 52.2 % (35.0-46.0) Mean Corpuscular Hemoglobin 31.5 % Concent (32.0-36.0) Eosinophils (%) (Auto) 5.2 % (0.0-4.0) Potassium Level 5.2 MEQ/L (3.5-5.1) Chloride Level 111 MEQ/L (98-107) Estimat Glomerular Filtration 78 ML/MIN (>89) 52 ML/MIN (>89) Rate Calcium Level 8.4 MG/DL (8.5-10.1) Troponin I 0.16 NG/ML 0.10 NG/ML (0.02-0.05) (0.02-0.05) Urine Ketones 15 mg/dL (NEG) Creatinine 1.06 MG/DL (0.50-1.00) LDL Cholesterol 123 MG/DL (0-99) Test 11/03/16 11/04/16 06:10 04:55 Neutrophils (%) (Auto) 85.2 % (16.0-70.0) Neutrophils # (Auto) 9.4 TH/MM3 (1.8-7.7) Chloride Level 111 MEQ/L 112 MEQ/L (98-107) (98-107) Blood Urea Nitrogen 19 MG/DL (7-18) Estimat Glomerular Filtration 73 ML/MIN (>89) Rate Random Glucose 108 MG/DL (74-106) Calcium Level 8.1 MG/DL 7.9 MG/DL (8.5-10.1) (8.5-10.1) Aspartate Amino Transf 9 U/L (15-37) (AST/SGOT) Total Protein 5.9 GM/DL (6.4-8.2) Albumin 2.4 GM/DL (3.4-5.0) PE at Discharge GENERAL: NAD SKIN: Warm and dry. HEAD: Normocephalic. EYES: No scleral icterus. No injection or drainage. NECK: Supple, trachea midline. No JVD or lymphadenopathy. CARDIOVASCULAR: Regular rate and rhythm without murmurs, gallops, or rubs. RESPIRATORY: Breath sounds equal bilaterally. No accessory muscle use. GASTROINTESTINAL: Abdomen soft, non-tender, nondistended. MUSCULOSKELETAL: No cyanosis, or edema. BACK: Nontender without obvious deformity. No CVA tenderness. Hospital Course 1-Non-ST elevation [place]: Appreciate input from cardiology and patient is status post [facility] 11/03/16 with Angiographically normal coronary arteries and Normal left ventricular systolic function. She was treated with Nitrol /lisinopril/ aspirin/atenolol and Lipitor. Lovenox Sq discontinued prior to [facility] 2-Hypertensive urgency: Resolved and she was continued on atenolol 25 mg daily and lisinopril 40 mg daily 3-Diarrhea: C. difficile PCR negative, improved continue with conservative management including IV fluid hydration 4-DVT prophylaxis: Lovenox Pt Condition on Discharge: Stable Discharge Disposition: Discharge Home Discharge Time: <= 30 minutes Discharge Instructions DIET: Follow Instructions for: Heart Healthy Diet Activities you can perform: Regular-No Restrictions Follow up Referrals: PCP Follow-up - 1 Week New Medications: Aspirin DR (Aspirin EC) 81 Mg Tabdr 81 MG PO DAILY Prevent Blood Clot #30 TAB Atenolol (Atenolol) 25 Mg Tab 25 MG PO DAILY Blood Pressure Management #30 TAB Atorvastatin (Lipitor) 20 Mg Tab 20 MG PO HS Cholesterol Management #30 TAB Lisinopril (Lisinopril) 20 Mg Tab 40 MG PO DAILY Blood Pressure Management #30 TAB Discontinued Medications: Atenolol (Atenolol) 25 Mg Tab 50 MG PO DAILY Blood Pressure Management #60 Ref 0 TAB Edwin Mccallum MD Nov 04, 2016 08:27
[2016-11-04] MEDS: ATENOLOL 25 MG TAB PO SCH (09:10)
[2016-11-04] MEDS: ASPIRIN EC 81 MG TABEC PO SCH (09:11)
[2016-11-04] MEDS: LISINOPRIL 20 MG TAB PO SCH (09:13)
--- NOTE | 2016-11-04 10:18 | RADRPT ---
EXAM DATE/TIME: 11/04/2016 10:05 [place] COMPARISON: No previous studies available for comparison. INDICATIONS : Follow up for high blood pressure related chest pain. Patient states no more chest pain or pressure. MEDICAL HISTORY : Hypertension. Chronic obstructive pulmonary disease. Asthma. SURGICAL HISTORY : None. ENCOUNTER: Subsequent ACUITY: 3 days PAIN SCORE: 0/10 LOCATION: Bilateral chest FINDINGS: PA and lateral views of the chest demonstrate the lungs to be symmetrically aerated without evidence of mass, infiltrate or effusion. The cardiomediastinal contours are unremarkable. Osseous structure s are intact. CONCLUSION: Normal examination for a patient of this age. Gilson Garcia MD on November 04, 2016 at 10:17 Board Certified Radiologist. This report was verified electronically.
[2016-11-07] MEDS ORDERED: LISI40TA PO (11:21)
[2016-11-07] MEDS ORDERED: AMLO5TAB2 PO (11:55)
[2016-11-07] MEDS ORDERED: CLON.1 PO (13:32)
[2016-11-10] MEDS ORDERED: LATA0.002 EACH EYE (10:35)
[2017-01-10] MEDS ORDERED: LIPI20TA PO (09:32)
[2017-01-10] MEDS ORDERED: LISI40TA PO (09:32)
[2017-01-10] MEDS ORDERED: AMLO5TAB2 PO (09:32)
[2017-01-10] MEDS ORDERED: ATEN25TA PO (09:32)
== END 2016-11-04 11:42 | disposition home or self-care (01) | DRG 281 ==
LOC: PHED 09:08 → PHEDA 13:55 → HCIN 17:13
PROVIDERS: ADMIT Hospitalist; ATTEND Hospitalist
PROC: B2151ZZ Fluoroscopy of Left Heart using Low Osmolar Contrast (ICD-10-PCS; 2016-11-03)
PROC: B2111ZZ Fluoroscopy of Multiple Coronary Arteries using Low Osmolar Contrast (ICD-10-PCS; 2016-11-03)
PROC: 4A023N7 Measurement of Cardiac Sampling and Pressure, Left Heart, Percutaneous Approach (ICD-10-PCS; principal; 2016-11-03 11:00)
DX: I21.4 Non-ST elevation (NSTEMI) myocardial infarction (principal); I16.1 Hypertensive emergency; R19.7 Diarrhea, unspecified; I10 Essential (primary) hypertension; E78.5 Hyperlipidemia, unspecified
CPT/HCPCS: 71020; 80048; 80053; 80061; 81001; 82043; 82565; 83735; 84484; 84550; 85025; 85610; 85730; 86850; 86900; 86901; 87493; 87506; 93005; 93306; 93458; 96361; 96374; 96375; C1769; C1893; J0360; J0461; J1644; J1650; J1885; J2250; J3010; J7030; J7040; Q9967